=== PATIENT | female | born 1980 | race Caucasian/White ===

== ENCOUNTER 2020-02-09 19:20 | Emergency (ER) | payer OTHER ==
[~2020-02-09] VITALS: Ht 167.6 cm; Wt 98.0 kg
[2020-02-09 19:38] VITALS: BP 138/94
--- NOTE | 2020-02-09 19:45 | NUR ---
PT TAKEN TO BED 11
--- NOTE | 2020-02-09 19:45 | NUR ---
URINE SAMPLE COLLECTED AT THIS TIME.
--- NOTE | 2020-02-09 19:49 | NUR ---
TRUNG NICKERSON AT BEDSIDE FOR MEDICAL EVALUATION.
[2020-02-09] MEDS ORDERED: KETOROLAC 60 MG/2 ML VIAL IM ONE (19:55)
--- NOTE | 2020-02-09 20:13 | NUR ---
pt is being taken to xray via wheelchair
--- NOTE | 2020-02-09 20:21 | NUR ---
PT IS BEING WHEELCHAIRED BACK TO ED ROOM 11 FROM XRAY
--- NOTE | 2020-02-09 20:35 | NUR ---
REASSESSED PT, SHE WAS LAYING DOWN IN THE BED FALING ASLEEP, WHEN ASKED ABOUT HER PAIN SHE STATED THAT IT WAS DOWN TO 6/10
--- NOTE | 2020-02-09 20:35 | NUR ---
Celia rios in ED - 02/10/20 at 0510 by [facility] REASSESSED PT, SHE WAS LAYING DOWN IN THE BED FALING ASLEEP, WHEN ASKED ABOUT HER PAIN SHE STATED THAT IT WAS DOWN TO 09/08
--- NOTE | 2020-02-09 21:00 | NUR ---
PT IS LAYING DOWN ON HER LEFT SIDE, VISIBLE RISE AND FALL OF CHEST NOTED. PT IS NOT IN ANY ACUTE DISTRESS AT THIS TIME. BED IS LOCKED AND IN LOWEST POSITION, SIDE RAILS X1
[2020-02-09 21:25] VITALS: BP 138/94
== END 2020-02-09 21:25 | disposition home or self-care (01) ==
LOC: MED 19:20
DX: S39.012A Strain of muscle, fascia and tendon of lower back, initial encounter (principal); F17.210 Nicotine dependence, cigarettes, uncomplicated; R73.03 Prediabetes; Z88.0 Allergy status to penicillin; X58.XXXA Exposure to other specified factors, initial encounter; Y93.89 Activity, other specified; Y92.89 Other specified places as the place of occurrence of the external cause; Y99.8 Other external cause status
CPT/HCPCS: 72080; 81002; 81025; 96372; 99283; J1885